=== PATIENT | female | born 1955 ===

== ENCOUNTER 2017-08-19 07:25 | Emergency (ER) | payer OTHER ==
[2017-08-19 07:36] VITALS: BMI 27.7
[2017-08-19] MEDS ORDERED: Sodium Chloride 0.9% 1,000 ML IV STA (07:50)
[2017-08-19 08:28] LABS: BASO # 0.1 K/uL (0.0-0.2); BASO % 0.7 % (0.0-2.0); EOS # 0.5 K/uL (0.0-0.7); EOS % 4.9 % (0.0-4.0); HEMOGLOBIN 13.3 g/dL (12.0-16.0); LYMPH # 1.1 K/uL (1.0-4.3); LYMPH % 11.9 % (20.0-40.0); MEAN CORPUSCULAR HEMOGLOBIN 27.9 pg (27.0-31.0); MEAN CORPUSCULAR HGB CONC 32.8 g/dL (33.0-37.0); MONO # 0.6 K/uL (0.0-0.8); MONO % 6.7 % (0.0-10.0); NEUT % 75.8 % (50.0-75.0); NRBC % 0.1 % (0.0-0.0); RBC 4.78 Mil/uL (3.80-5.20); RED CELL DISTRIBUTION WIDTH 13.4 % (11.5-14.5); WHITE BLOOD COUNT 9.3 K/uL (4.8-10.8)
--- NOTE | 2017-08-19 08:35 | ED PDOC ---
HPI: Abdomen Time Seen by Provider: 08/19/17 07:44 Chief Complaint (Nursing): Abdominal Pain Chief Complaint (Provider): Abdominal Pain History Per: Patient History/Exam Limitations: no limitations Onset/Duration Of Symptoms: Days (x3 ) Outside of [place] travel?: No Current Symptoms Are (Timing): Still Present Location Of Pain/Discomfort: RUQ, RLQ Quality Of Discomfort: Sharp Associated Symptoms: Fever (subjective), Nausea, Vomiting, Loss Of Appetite Exacerbating Factors: None Alleviating Factors: None Additional Complaint(s): Eve Kay, a 61 year old female, with a past medical history of arthritis presents to to the ED complaining of right sided abdominal pain, nausea, vomiting and subjective fever x3 days. The patient reports that the pain radiates to her back and is localized to her right upper and lower quadrants. Denies urinary complaints. PMD: Michele Overton Abnormal Vaginal Bleeding: No Past Medical History Reviewed: Historical Data, Nursing Documentation, Vital Signs Vital Signs: Last Vital Signs Temp 99.8 F H 08/19/17 13:32 Pulse 78 08/19/17 13:32 Resp 17 08/19/17 13:32 BP 110/67 08/19/17 13:32 Pulse Ox 98 08/19/17 13:32 - Medical History PMH: Arthritis - Surgical History Surgical History: No Surg Hx - Family History Family History: States: Unknown Family Hx - Immunization History Hx Tetanus Toxoid Vaccination: No Hx Influenza Vaccination: No Hx Pneumococcal Vaccination: No - Home Medications Home Medications: Ambulatory Orders Medication Instructions Recorded Ciprofloxacin [Cipro] 500 mg PO BID #14 tab 08/19/17 Ondansetron [Zofran] 4 mg PO Q6H PRN #10 tab 08/19/17 metroNIDAZOLE [Flagyl] 500 mg PO TID #21 tab 08/19/17 traMADol [Ultram] 50 mg PO TID PRN #12 tab 08/19/17 - Allergies Allergies/Adverse Reactions: Allergies Allergy/AdvReac Type Severity Reaction Status Date / Time No Known Allergies Allergy Unverified 03/17/13 12:06 Review of Systems ROS Statement: Except As Marked, All Systems Reviewed And Found Negative Constitutional: Positive for: Fever (subjective) Gastrointestinal: Positive for: Nausea, Vomiting, Abdominal Pain (RUQ and RLQ), Diarrhea Physical Exam - Reviewed Nursing Documentation Reviewed: Yes Vital Signs Reviewed: Yes - Physical Exam Appears: Positive for: Non-toxic. Negative for: No Acute Distress (Mild painful distress) Head Exam: Positive for: ATRAUMATIC, NORMAL INSPECTION, NORMOCEPHALIC Skin: Positive for: Normal Color, Warm, Dry. Negative for: Rash Eye Exam: Positive for: Normal appearance, EOMI, PERRL. Negative for: Nystagmus ENT: Positive for: Normal ENT Inspection Neck: Positive for: Normal Cardiovascular/Chest: Positive for: Regular Rate, Rhythm, Chest Non Tender. Negative for: Tachycardia Respiratory: Positive for: Normal Breath Sounds. Negative for: Wheezing, Respiratory Distress Gastrointestinal/Abdominal: Positive for: Normal Exam, Bowel Sounds, Tenderness (RUQ and RLQ tenderness). Negative for: Soft, Mass, Guarding, Rebound Back: Positive for: Normal Inspection. Negative for: L CVA Tenderness, R CVA Tenderness Extremity: Positive for: Normal ROM. Negative for: Tenderness, Deformity, Swelling Lymphatic: Positive for: Normal Exam Neurologic/Psych: Positive for: Alert, Oriented, Gait - Laboratory Results Result Diagrams: 08/19/17 08:21 08/19/17 08:21 - ECG O2 Sat by Pulse Oximetry: 99 (RA) Pulse Ox Interpretation: Normal Medical Decision Making Medical Decision Makin Iniitial Impression 61 y/o female presenting with abdominal pain, nausea, vomiting and diarrhea Work up for abdominal pain r/o appendicitis and cholecystitis Initial Plan: * CT ABD&PELV IV Contrast * CMP * Lipase * CBC * NS 1000 ml IV 1000mls/hr * Pepcid 20mg IV * Toradol 30mg IV * Zofran 4 mg IV * Urinalysis * Reevaluation labs reviewed CT report reviewed, shows R sided colitis, appendix was normal per radiologist Antibiotics initiated and 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 Scribe Attestation Documented by Ilene Leiva acting as a scribe for Orlando Villatoro DO. Provider Attestation All medical record entries made by the Scribe were at my direction and personally dictated by me. I have reviewed the chart and agree that the record accurately reflects my personal performance of the history, physical exam, medical decision making, and the department course for this patient. I have also personally directed, reviewed, and agree with the discharge instructions and disposition. Disposition - Clinical Impression Clinical Impression: Colitis - Patient ED Disposition Is Patient to be Admitted: No Counseled Patient/Family Regarding: Studies Performed, Diagnosis, Need For Followup, Rx Given - Disposition Referrals: Michele Mtz MD [Primary Care Provider] - Masood Dietz MD [Staff Provider] - Disposition: Routine/Home Disposition Time: 12:55 Condition: STABLE Additional Instructions: Followup with PMD and GI doctor. Return to ER for any worse or new symptoms/ Prescriptions: Ciprofloxacin [Cipro] 500 mg PO BID #14 tab metroNIDAZOLE [Flagyl] 500 mg PO TID #21 tab Ondansetron [Zofran] 4 mg PO Q6H PRN #10 tab PRN Reason: Nausea/Vomiting traMADol [Ultram] 50 mg PO TID PRN #12 tab PRN Reason: Pain, Moderate (4-7) Instructions: Abdominal Pain (ED), Colitis (ED) Forms: [employer] (Lao) Print Language: PERSIAN
[2017-08-19 08:38] LABS: SQUAMOUS EPITHIAL < 1 /hpf (0-5); URINE BILIRUBIN NEGATIVE (NEGATIVE); URINE BLOOD MODERATE (NEGATIVE); URINE CLARITY CLEAR (Clear); URINE COLOR STRAW (YELLOW); URINE GLUCOSE (UA) NEG (Normal); URINE LEUKOCYTE ESTERASE TRACE Leu/uL (Negative); URINE NITRATE NEGATIVE (NEGATIVE); URINE PROTEIN NEGATIVE (NEGATIVE); URINE UROBILINOGEN 0.2-1.0 mg/dL (0.2-1.0)
[2017-08-19 08:39] LABS: ALB/GLOB RATIO 1.1 (1.0-2.1); ALBUMIN 4.1 g/dL (3.5-5.0); ALT/SGPT 40 U/L (9-52); AST/SGOT 39 U/L (14-36); BLOOD UREA NITROGEN 12 mg/dl (7-17); CALCIUM 8.7 mg/dL (8.4-10.2); GFR AFRICAN-AMERICAN > 60; GFR NON-AFRICAN AMERICAN > 60; LIPASE 73 U/L (23-300)
[2017-08-19] MEDS ORDERED: Iohexol 300 100 ML IJ ONE (09:17)
--- NOTE | 2017-08-19 10:21 | CT ---
PROCEDURE: CT Abdomen and Pelvis with contrast HISTORY: RLQ and RUQ pain x3 days COMPARISON: None. TECHNIQUE: Contrast dose: Omnipaque 300, 95 cc Radiation dose: Total exam DLP = 694.35 mGy-cm. This CT exam was performed using one or more of the following dose reduction techniques: Automated exposure control, adjustment of the mA and/or kV according to patient size, and/or use of iterative reconstruction technique. FINDINGS: LOWER THORAX: No pleural or pericardial effusion. A left lower lobe subpleural granuloma is identified heavily calcified. LIVER: There is a tiny lucency at the dome of liver too small to characterize. The remainder liver is unremarkable GALLBLADDER AND BILE DUCTS: Unremarkable. PANCREAS: Unremarkable. No gross lesion or ductal dilatation. SPLEEN: Unremarkable. ADRENALS: Unremarkable. No mass. KIDNEYS AND URETERS: Unremarkable. No hydronephrosis. No solid mass. VASCULATURE: Unremarkable. No aortic aneurysm. BOWEL: Majority large bowel is collapsed with questionable mural thickening which may indicate an element of mild segmental colitis affecting the ascending through distal transverse segments. Mild prominence of the submucous fat within remaining large-bowel in even the ileum may indicate underlying irritable bowel disease or other chronic inflammatory process. Further clinical correlation is advised. APPENDIX: Normal appendix. PERITONEUM: Unremarkable. No free fluid. No free air. LYMPH NODES: Unremarkable. No enlarged lymph nodes. BLADDER: Unremarkable. REPRODUCTIVE: Unremarkable. BONES: No acute fracture. OTHER FINDINGS: None. IMPRESSION: 1. Possible segmental colitis affecting the cecum through distal transverse colon segments without obvious abscess ascites or free intraperitoneal gas. Underlying inflammatory bowel disease may affect distal small bowel through the colon nevertheless, as discussed above. Other chronic inflammatory bowel processes are not excluded. 2. Tiny lucency at the dome of the liver too small to characterize.
[2017-08-19 13:38] VITALS: BP 110/67; PULSE 78; RESP 17; TEMP 99.8
[2017-08-21 08:14] VITALS: O2SAT 99
== END 2017-08-19 13:47 | disposition home or self-care (01) ==
LOC: SUPCPDRO 07:25 → H.ER 07:25
DX: K52.9 Noninfective gastroenteritis and colitis, unspecified (principal)
CPT/HCPCS: 74177; 80053; 81003; 83690; 85025; 96374; 96375; 99283; J1885; J2405; J7040; Q9967

== ENCOUNTER 2018-03-12 17:49 | Inpatient (IN) | payer OTHER ==
[2018-03-12 17:49] VITALS: BMI 27.7
[2018-03-12] MEDS ORDERED: Sodium Chloride 0.9% 1,000 ML IV STA (19:05)
[2018-03-12] MEDS ORDERED: Iohexol 240 (50 ml) PO ONE (19:08)
--- NOTE | 2018-03-12 19:08 | ED PDOC ---
HPI: Abdomen Time Seen by Provider: 03/12/18 18:57 Chief Complaint (Nursing): Abdominal Pain Chief Complaint (Provider): RLQ pain x 8 days History Per: Patient History/Exam Limitations: no limitations Onset/Duration Of Symptoms: Days Outside of [place] travel?: No Current Symptoms Are (Timing): Still Present Additional Complaint(s): 62 yo female with no medical problems presents with RLQ pain and diarrhea x 8 days. Pt states diarrhea is watery. Pt denies fever/chills. Pt states she is extremely nauseous and has been vomiting. Pt denies similar in the past. Pt was seen in ER for abdominal pain and colitis in the past. Past Medical History Reviewed: Historical Data, Nursing Documentation, Vital Signs Vital Signs: Last Vital Signs Temp 98.2 F 03/12/18 18:31 Pulse 77 03/12/18 18:31 Resp 16 03/12/18 18:31 BP 114/75 03/12/18 18:31 Pulse Ox 98 03/12/18 19:08 - Medical History PMH: Arthritis - Surgical History Surgical History: No Surg Hx - Family History Family History: States: Unknown Family Hx - Living Arrangements Living Arrangements: With Family - Social History Current smoker - smoking cessation education provided: No Alcohol: None Drugs: Denies - Immunization History Hx Tetanus Toxoid Vaccination: No Hx Influenza Vaccination: No Hx Pneumococcal Vaccination: No - Home Medications Home Medications: Ambulatory Orders Medication Instructions Recorded Ciprofloxacin [Cipro] 500 mg PO BID #14 tab 08/19/17 Ondansetron [Zofran] 4 mg PO Q6H PRN #10 tab 08/19/17 metroNIDAZOLE [Flagyl] 500 mg PO TID #21 tab 08/19/17 traMADol [Ultram] 50 mg PO TID PRN #12 tab 08/19/17 - Allergies Allergies/Adverse Reactions: Allergies Allergy/AdvReac Type Severity Reaction Status Date / Time No Known Allergies Allergy Unverified 03/17/13 12:06 Review of Systems ROS Statement: Except As Marked, All Systems Reviewed And Found Negative Constitutional: Negative for: Fever, Chills Gastrointestinal: Positive for: Nausea, Vomiting, Abdominal Pain, Diarrhea Physical Exam - Reviewed Nursing Documentation Reviewed: Yes Vital Signs Reviewed: Yes - Physical Exam Appears: Positive for: Well, Non-toxic, No Acute Distress Head Exam: Positive for: ATRAUMATIC, NORMAL INSPECTION, NORMOCEPHALIC Skin: Positive for: Normal Color, Warm, DRY Eye Exam: Positive for: Normal appearance ENT: Positive for: Normal ENT Inspection Neck: Positive for: Normal, Painless ROM Cardiovascular/Chest: Positive for: Regular Rate, Rhythm Respiratory: Positive for: Normal Breath Sounds. Negative for: Accessory Muscle Use, Respiratory Distress Gastrointestinal/Abdominal: Positive for: Tenderness (RLQ ), Guarding. Negative for: Normal Exam Back: Positive for: Normal Inspection Extremity: Positive for: Normal ROM Neurologic/Psych: Positive for: Alert, Oriented - ECG O2 Sat by Pulse Oximetry: 98 Medical Decision Making Medical Decision Making: Endorsed pending CT of the abdomen and pelvis Disposition - Clinical Impression Clinical Impression: Abdominal pain - Patient ED Disposition Is Patient to be Admitted: Transfer of Care - Disposition Disposition: Transfer of Care Disposition Time: 20:00 Condition: STABLE Forms: [email or web address] (Lithuanian)
[2018-03-12] MEDS ORDERED: Iohexol 240 (50 ml) ONE (19:22)
[2018-03-12 20:07] LABS: BASO % 0.1 % (0.0-2.0); EOS # 0.3 K/uL (0.0-0.7); EOS % 1.8 % (0.0-4.0); LYMPH # 0.6 K/uL (1.0-4.3); LYMPH % 3.1 % (20.0-40.0); MEAN CELL VOLUME 85.8 fl (81.0-99.0); MEAN CORPUSCULAR HEMOGLOBIN 28.6 pg (27.0-31.0); MEAN CORPUSCULAR HGB CONC 33.4 g/dL (33.0-37.0); MEAN PLATELET VOLUME 10.4 fl (7.2-11.7); MONO # 1.1 K/uL (0.0-0.8); MONO % 6.3 % (0.0-10.0); NEUT % 88.7 % (50.0-75.0); PLATELET COUNT 253 K/uL (130-400); RED CELL DISTRIBUTION WIDTH 13.4 % (11.5-14.5)
[2018-03-12 20:22] LABS: ALB/GLOB RATIO 1.1 (1.0-2.1); ALBUMIN 4.1 g/dL (3.5-5.0); ALT/SGPT 21 U/L (9-52); AST/SGOT 28 U/L (14-36); BLOOD UREA NITROGEN 17 mg/dl (7-17); GFR AFRICAN-AMERICAN > 60; GFR NON-AFRICAN AMERICAN > 60
--- NOTE | 2018-03-12 20:22 | ED PDOC ---
- Laboratory Results Result Diagrams: 03/12/18 19:30 03/12/18 19:30 - ECG O2 Sat by Pulse Oximetry: 98 - Progress ED Course And Treament: 1999 Signed out to me pending CT. 2019 On my initial evaluation, pt. reports pain has improved. Abd still with RLQ tenderness. No guarding or rebound. WBC: 18. VBG ordered. Pending CT. 2217 CT: 1. There is diffuse colonic wall thickening, which could be an artifact due to incomplete distention or true colitis (more likely). 2. There is mild small bowel wall prominence, likely an artifact due to incomplete distention. True small bowel wall edema/inflammation cannot be excluded completely. Cipro IV, flagyl IV ordered. Pt. informed of results and agrees with plan to admit. Case d/w Dr. Richards, hospitalist, arrangements made for admission. Disposition - Clinical Impression Clinical Impression: Colitis - POA Present On Arrival: None - Disposition Disposition: Admitted as In-Patient Disposition Time: 22:18 Condition: STABLE Forms: [employer] Connect (Mohawk)
[2018-03-12 21:12] LABS: SQUAMOUS EPITHIAL 1 /hpf (0-5); URINE BILIRUBIN NEGATIVE (NEGATIVE); URINE BLOOD SMALL (NEGATIVE); URINE CLARITY SLIGHTY-CLOUDY (Clear); URINE COLOR YELLOW (YELLOW); URINE GLUCOSE (UA) NEG (Normal); URINE HYALINE CAST 0-2 /hpf (0-2); URINE LEUKOCYTE ESTERASE MOD Leu/uL (Negative); URINE PROTEIN NEGATIVE (NEGATIVE); URINE UROBILINOGEN 0.2-1.0 mg/dL (0.2-1.0)
[2018-03-12 21:15] LABS: VENOUS BLOOD GAS PCO2 48 mmHg (40-60); VENOUS BLOOD GAS PO2 24 mm/Hg (30-55); VENOUS BLOOD PH 7.36 (7.32-7.43)
[2018-03-12] MEDS ORDERED: Iodixanol 320 MG/ML 100 ML BOTTLE IV ONE (21:17)
[2018-03-12 21:49] LABS: EOSINOPHIL 1 % (0-7); MONOCYTE 3 % (0-10); NEUTROPHIL 96 % (42-75); PLATELET ESTIMATE NORMAL (NORMAL); TOTAL CELLS COUNTED 100
[2018-03-12] MEDS ORDERED: metroNIDAZOLE 500mg/100ml NS 100 ML IVPB STA (22:19)
[2018-03-12] MEDS ORDERED: Ciprofloxacin 400mg/200ml D5W 400 MG/200 ML BAG IVPB STA (22:19)
[2018-03-12] MEDS ORDERED: metroNIDAZOLE 500mg/100ml NS 100 ML IVPB ONE (22:34)
[2018-03-12] MEDS ORDERED: Ciprofloxacin 400mg/200ml D5W 400 MG/200 ML BAG IVPB ONE (22:34)
--- NOTE | 2018-03-12 22:46 | CP.PCM.HP ---
History of Present Illness - History of Present Illness History of Present Illness: PMD: Michele Mtz MD Chief Complaint: Abdominal pain/Diarrhea The patient was seen and examined in the ED HPI: This is a 62 years old Female with no significant past medical hx , comes with 8 days of worsening Pain to the right lower quadrant , radiating to the RUQ, Epigastrium and to the Right back. The pain is continuous, increasing with food ingestion and not relieved with [place] seltzer. It is associated with non bloody diarrhea, nausea and vomiting. No fever, chills. No family member nor friends with similar symptom. PMH: Arthritis PSH: Denies SH: No illegal drug use; no Alcohol; No Cigarette smoking; Live with family; Unemployed FH: States: Unknown Family Hx Allergies: NKDA Medications: Reviewed - Present on Admission - Present on Admission Any Indicators Present on Admission: No History of DVT/PE: No History of Uncontrolled Diabetes: No Urinary Catheter: No Decubitus Ulcer Present: No Review of Systems - Constitutional Constitutional: absent: Chills, Fever, Headache, Weakness - EENT Eyes: absent: Blurred Vision, Diplopia, Floaters, Loss of Peripheral Vision, Requires Corrective Lenses Ears: absent: Decreased Hearing, Ear Discharge, Tinnitus, Abnormal Hearing Nose/Mouth/Throat: absent: Epistaxis, Nasal Congestion, Nasal Discharge, Nasal Trauma, Nose Pain - Cardiovascular Cardiovascular: absent: Chest Pain, Dyspnea, Edema, Leg Ulcers, Palpitations - Respiratory Respiratory: absent: Cough, Dyspnea, Dyspnea on Exertion, Wheezing, Stridor - Gastrointestinal Gastrointestinal: Diarrhea, Nausea, Vomiting. absent: Constipation, Hematochezia, Melena - Genitourinary Genitourinary: absent: Dysuria, Flank Pain, Hematuria, Urinary Frequency - Musculoskeletal Musculoskeletal: absent: Arthralgias, Myalgias, Numbness - Integumentary Integumentary: absent: Pruritus, Rash, Skin Ulcer, Sores, Striae, Swelling - Neurological Neurological: absent: Burning Sensations, Confusion, Focal Weakness, Loss of Vision - Psychiatric Psychiatric: absent: Anxiety, Confusion, Depression, Panic Attacks - Endocrine Endocrine: absent: Palpitations, Polydipsia, Polyphagia, Polyuria - Hematologic/Lymphatic Hematologic: absent: Easy Bleeding, Easy Bruising Past Patient History - Infectious Disease Hx of Infectious Diseases: None - Past Medical History & Family History Past Medical History?: Yes - Past Social History Smoking Status: Never Smoked Chewing Tobacco Use: No Cigar Use: No Alcohol: Occasional Drugs: Denies Home Situation {Lives}: With Family - CARDIAC Hx Cardiac Disorders: No - PULMONARY Hx Respiratory Disorders: No - NEUROLOGICAL Hx Neurological Disorder: No - HEENT Hx HEENT Problems: No - RENAL Hx Chronic Kidney Disease: No - ENDOCRINE/METABOLIC Hx Endocrine Disorders: No - HEMATOLOGICAL/ONCOLOGICAL Hx Blood Disorders: No - INTEGUMENTARY Hx Dermatological Problems: No - MUSCULOSKELETAL/RHEUMATOLOGICAL Hx Musculoskeletal Disorders: No Hx Arthritis: Yes - GASTROINTESTINAL Hx Gastrointestinal Disorders: No - GENITOURINARY/GYNECOLOGICAL Hx Genitourinary Disorders: No - PSYCHIATRIC Hx Psychophysiologic Disorder: No Hx Substance Use: No - SURGICAL HISTORY Hx Surgeries: No - ANESTHESIA Hx Anesthesia: No Meds Allergies/Adverse Reactions: Allergies Allergy/AdvReac Type Severity Reaction Status Date / Time No Known Allergies Allergy Unverified 03/17/13 12:06 Physical Exam - Constitutional Appears: No Acute Distress - Head Exam Head Exam: ATRAUMATIC, NORMAL INSPECTION, NORMOCEPHALIC - Eye Exam Eye Exam: EOMI, Normal appearance, Periorbital swelling - ENT Exam ENT Exam: Mucous Membranes Moist, Normal Exam, Normal External Ear Exam - Neck Exam Neck exam: Positive for: Full Rom, Thyromegaly - Respiratory Exam Respiratory Exam: absent: Clear to Auscultation Bilateral, Rales, Rhonchi, Wheezes - Cardiovascular Exam Cardiovascular Exam: absent: REGULAR RHYTHM, JVD, RRR, +S1, +S2 - GI/Abdominal Exam GI & Abdominal Exam: Normal Bowel Sounds, Soft. absent: Tenderness - Rectal Exam Rectal Exam: Deferred - Extremities Exam Extremities exam: Positive for: full ROM, normal inspection. Negative for: calf tenderness, pedal edema - Back Exam Back exam: NORMAL INSPECTION. absent: CVA tenderness (L), CVA tenderness (R) - Neurological Exam Neurological exam: Alert, CN II-XII Intact, Oriented x3, Reflexes Normal - Psychiatric Exam Psychiatric exam: Normal Affect, Normal Mood - Skin Skin Exam: Dry, Intact, Normal Color, Warm Results - Vital Signs Recent Vital Signs: Last Vital Signs Temp 98.2 F 03/12/18 18:31 Pulse 60 03/12/18 22:43 Resp 18 03/12/18 22:43 BP 106/55 L 03/12/18 22:43 Pulse Ox 97 07/14/18 22:43 - Labs Result Diagrams: 03/12/18 19:30 03/12/18 19:30 Labs: Laboratory Results - last 24 hr 03/12/18 03/12/18 03/12/18 19:30 19:30 20:25 WBC 18.0 H D RBC 4.90 Hgb 14.0 Hct 42.0 MCV 85.8 MCH 28.6 MCHC 33.4 RDW 13.4 Plt Count 253 MPV 10.4 Neut % (Auto) 88.7 H Lymph % (Auto) 3.1 L [place] % (Auto) 6.3 Eos % (Auto) 1.8 Baso % (Auto) 0.1 Neut # (Auto) 16.0 H Lymph # (Auto) 0.6 L [place] # (Auto) 1.1 H Eos # (Auto) 0.3 Baso # (Auto) 0.0 Neutrophils % (Manual) 96 H Lymphocytes % (Manual) TEST NOT PERFORMED Monocytes % (Manual) 3 Eosinophils % (Manual) 1 Platelet Estimate Normal RBC Morphology Normal pO2 VBG pH VBG pCO2 VBG HCO3 VBG Total CO2 VBG O2 Sat (Calc) VBG Base Excess VBG Potassium Glucose Lactate FiO2 Sodium 146 Potassium 4.0 Chloride 106 Carbon Dioxide 26 Anion Gap 18 BUN 17 Creatinine 0.8 Est GFR ( Amer) > 60 Est GFR (Non-Af Amer) > 60 Random Glucose 114 H Calcium 9.0 Total Bilirubin 1.9 H AST 28 ALT 21 Alkaline Phosphatase 128 H D Total Protein 7.9 Albumin 4.1 Globulin 3.8 Albumin/Globulin Ratio 1.1 Venous Blood Potassium Urine Color Yellow Urine Clarity Slighty-cloudy Urine pH 6.0 Ur Specific [place] 1.018 Urine Protein Negative Urine Glucose (UA) Neg Urine Ketones Negative Urine Blood Small Urine Nitrate Negative Urine Bilirubin Negative Urine Urobilinogen 0.2-1.0 Ur Leukocyte Esterase Mod Urine RBC (Auto) 7 H Urine Microscopic WBC 21 H Ur Squamous Epith Cells 1 Hyaline Casts 0-2 03/12/18 21:06 WBC RBC Hgb Hct MCV MCH MCHC RDW Plt Count MPV Neut % (Auto) Lymph % (Auto) [place] % (Auto) Eos % (Auto) Baso % (Auto) Neut # (Auto) Lymph # (Auto) [place] # (Auto) Eos # (Auto) Baso # (Auto) Neutrophils % (Manual) Lymphocytes % (Manual) Monocytes % (Manual) Eosinophils % (Manual) Platelet Estimate RBC Morphology pO2 24 L VBG pH 7.36 VBG pCO2 48 VBG HCO3 24.1 VBG Total CO2 28.6 H VBG O2 Sat (Calc) 48.5 VBG Base Excess 1.0 VBG Potassium 3.7 Glucose 117 H Lactate 0.8 FiO2 21.0 Sodium 140.0 Potassium Chloride 108.0 H Carbon Dioxide Anion Gap BUN Creatinine Est GFR ( Amer) Est GFR (Non-Af Amer) Random Glucose Calcium Total Bilirubin AST ALT Alkaline Phosphatase Total Protein Albumin Globulin Albumin/Globulin Ratio Venous Blood Potassium 3.7 Urine Color Urine Clarity Urine pH Ur Specific [place] Urine Protein Urine Glucose (UA) Urine Ketones Urine Blood Urine Nitrate Urine Bilirubin Urine Urobilinogen Ur Leukocyte Esterase Urine RBC (Auto) Urine Microscopic WBC Ur Squamous Epith Cells Hyaline Casts - Imaging and Cardiology CT scan - abdomen Status: Report reviewed by me Additional comment: EXAM: CT Abdomen and Pelvis With Intravenous Contrast EXAM DATE/TIME: 03/12/2018 7:08 PM FINDINGS: Lower thorax: There are slight groundglass opacities in the dependent portions of the lower lungs, suggesting atelectasis. ABDOMEN: Liver: There is a tiny hypodensity in the dome of the liver, likely a cyst. Gallbladder and bile ducts: Normal. No calcified stones. No ductal dilation. Pancreas: Normal. No ductal dilation. Spleen: Normal. No splenomegaly. Adrenals: Normal. No mass. Kidneys and ureters: Normal. No hydronephrosis. Stomach and bowel: There is diffuse colonic wall thickening, which could be an artifact due to incomplete distention or true colitis (more likely). There is mild small bowel wall prominence, likely an artifact due to incomplete distention. There is no bowel dilatation to suggest obstruction. Appendix: The CT appearance of the appendix is unremarkable. There are no signs of daniel appendicitis. PELVIS: Bladder: Unremarkable as visualized. Reproductive: Unremarkable as visualized. ABDOMEN and PELVIS: Intraperitoneal space: No free air. No significant fluid collection. Soft tissues: There is a small periumbilical hernia containing only fat. Vasculature: There is no aortic aneurysm or dissection. Lymph nodes: No enlarged lymph nodes. IMPRESSION: 1. There is diffuse colonic wall thickening, which could be an artifact due to incomplete distention or true colitis (more likely). 2. There is mild small bowel wall prominence, likely an artifact due to incomplete distention. True small bowel wall edema/inflammation cannot be excluded completely. Assessment & Plan - Assessment and Plan (Free Text) Assessment: #. Acute Colitis #. Acute Enteritis #. Leukocytosis Plan: 62 years old Female with no significant past medical hx, comes with 8 days of worsening Pain to the right lower quadrant , radiating to the RUQ, Epigastrium and to the Right back. It is associated with non bloody diarrhea, nausea and vomiting. No fever nor chills. #. Abdominal pain caused by the Acute Colitis and enteritis of unknown etiology - Consult Dr Resendez GI - Stool culture - Stool For C diff Toxins - Flagyl - Cipro - Pain management with Toradol - IV fluids #. Leukocytosis - Follow CBC #. DVT prophylaxis with Lovenox #. Code Status: Full - Date & Time Date: 03/12/18 Time: 22:46
[2018-03-13] MEDS: Sodium Chloride 0.9% 1,000 ML IV SCH ×2 (01:15→08:25)
[2018-03-13 07:19] LABS: BASO % 0.3 % (0.0-2.0); EOS # 0.7 K/uL (0.0-0.7); EOS % 9.1 % (0.0-4.0); HEMOGLOBIN 12.1 g/dL (12.0-16.0); LYMPH # 1.6 K/uL (1.0-4.3); MEAN CELL VOLUME 86.4 fl (81.0-99.0); MEAN CORPUSCULAR HEMOGLOBIN 28.8 pg (27.0-31.0); MEAN CORPUSCULAR HGB CONC 33.4 g/dL (33.0-37.0); MEAN PLATELET VOLUME 10.1 fl (7.2-11.7); MONO # 0.5 K/uL (0.0-0.8); NEUT # 4.7 K/uL (1.8-7.0); NEUT % 62.6 % (50.0-75.0); NRBC % 0.1 % (0.0-0.0); RBC 4.2 Mil/uL (3.80-5.20); RED CELL DISTRIBUTION WIDTH 13.5 % (11.5-14.5); WHITE BLOOD COUNT 7.6 K/uL (4.8-10.8)
[2018-03-13 07:27] LABS: BLOOD UREA NITROGEN 16 mg/dl (7-17); CALCIUM 8.2 mg/dL (8.4-10.2); GFR AFRICAN-AMERICAN > 60; GFR NON-AFRICAN AMERICAN > 60
[2018-03-13 08:08] VITALS: BP 120/70; PULSE 54; RESP 18; TEMP 97.8; O2SAT 97
[2018-03-13] MEDS ORDERED: Ciprofloxacin 400mg/200ml D5W 400 MG/200 ML BAG IVPB SCH (09:00)
[2018-03-13] MEDS ORDERED: Enoxaparin 40 mg Syringe SC SCH (09:00)
[2018-03-13] MEDS ORDERED: metroNIDAZOLE 500mg/100ml NS 100 ML IVPB SCH (09:00)
--- NOTE | 2018-03-13 09:53 | CP.PCM.CON ---
<Angie Stephenson - Last Filed: 03/13/18 09:43> History of Present Illness - History of Present Illness History of Present Illness: Gastroenterology Fellow/PGY6 Consult Note 62 year old female with PMH of Left knee arthritis and kidney stones presenting with abdominal pain and diarrhea. Patient describes progressive diffuse abdominal pain with increased severity on right jeri-abdomen with radiation to back, pain scale 10/10. Associated nausea and watery diarrhea daily 3-4 episodes for one week. Associated three pound unintentional weight loss due to loss of appetite and GI fluid loss. Notes eating ham/cheese tortilla and sandwich two diarrhea prior to worsened abdominal pain and diarrhea onset. No recent travel, antibiotics, sick contacts, vomiting melena, fever, chills, sweats, skin rash, mouth ulcer, eye pain/redness, or chronic unintentional weight loss. She admits to similar episodes of abdominal pain for the last five years and admits this is the first occurrence of diarrhea. Notes chronic, constant right-sided abdominal pain every 2-3 months that can last for at least one month. Admits to constant right knee pain worsened by prolonged sitting. Denies association of severity of knee and abdominal pain. Admits to use of Diclofenac once a month and Advil once every two months for the last three years for pain relief. Has presented to the ER in 2012 and most recent 07/2017 for similar abdominal pain with 7-10 day course of Cipro/flagyl prescribed each time and noncompliance to clinic follow up. Prior to diarrhea onset, admits to normal daily bowel movement without hematochezia/melena. Notes spontaneous passage of kidney stone seven years ago. Admits to semi-formed stool this morning and minimal abdominal pain. Tolerated clear liquid diet. No prior EGD or colonoscopy. Family History- denies IBD, stomach cancer, colon cancer Social History- denies tobacco, alcohol, illicit drug use Surgical History- steroid injection to hands for arthritis per patient Review of Systems - Review of Systems Review of Systems: 12-point review of systems negative except for as above Past Patient History - Infectious Disease Hx of Infectious Diseases: None - Past Medical History & Family History Past Medical History?: Yes - Past Social History Smoking Status: Never Smoked - CARDIAC Hx Cardiac Disorders: No - PULMONARY Hx Respiratory Disorders: No - NEUROLOGICAL Hx Neurological Disorder: No - HEENT Hx HEENT Problems: No - RENAL Hx Chronic Kidney Disease: No - ENDOCRINE/METABOLIC Hx Endocrine Disorders: No - HEMATOLOGICAL/ONCOLOGICAL Hx Blood Disorders: No - INTEGUMENTARY Hx Dermatological Problems: No - MUSCULOSKELETAL/RHEUMATOLOGICAL Hx Musculoskeletal Disorders: Yes Hx Arthritis: Yes Hx Falls: No - GASTROINTESTINAL Hx Gastrointestinal Disorders: No - GENITOURINARY/GYNECOLOGICAL Hx Genitourinary Disorders: No - PSYCHIATRIC Hx Psychophysiologic Disorder: No Hx Substance Use: No - SURGICAL HISTORY Hx Surgeries: No - ANESTHESIA Hx Anesthesia: No Meds Allergies/Adverse Reactions: Allergies Allergy/AdvReac Type Severity Reaction Status Date / Time No Known Allergies Allergy Unverified 03/17/13 12:06 - Medications Medications: Current Medications Acetaminophen (Tylenol 325mg Tab) 650 mg PO Q6 PRN PRN Reason: Pain, moderate (4-7) Enoxaparin Sodium (Lovenox) 40 mg SC DAILY DEVANTE PRN Reason: Protocol Last Admin: 03/13/18 08:27 Dose: 40 mg Ciprofloxacin (Cipro 400mg/200ml Dsw) 400 mg in 200 mls @ 200 mls/hr IVPB Q12 DEVANTE PRN Reason: Protocol Last Admin: 03/13/18 08:24 Dose: 200 mls/hr Metronidazole (Flagyl 500mg/100ml Ns) 100 mls @ 100 mls/hr IVPB Q8 DEVANTE PRN Reason: Protocol Last Admin: 03/13/18 08:25 Dose: 100 mls/hr Sodium Chloride (Sodium Chloride 0.9%) 1,000 mls @ 125 mls/hr IV .Q8H DEVANTE Stop: 03/13/18 23:23 Last Admin: 03/13/18 08:25 Dose: 125 mls/hr Ondansetron HCl (Zofran Inj) 4 mg IVP Q4 PRN PRN Reason: Nausea/Vomiting Physical Exam - Constitutional Appears: Non-toxic, No Acute Distress - Head Exam Head Exam: ATRAUMATIC, NORMOCEPHALIC - Eye Exam Eye Exam: EOMI, PERRL - ENT Exam ENT Exam: Mucous Membranes Moist, Normal Oropharynx - Neck Exam Neck exam: Positive for: Full Rom, Normal Inspection - Respiratory Exam Respiratory Exam: Clear to Auscultation Bilateral. absent: Rales, Rhonchi, Wheezes - Cardiovascular Exam Cardiovascular Exam: RRR, +S1, +S2. absent: Gallop, Rubs - GI/Abdominal Exam GI & Abdominal Exam: Normal Bowel Sounds, Soft, Tenderness. absent: Distended, Guarding, Organomegaly, Rebound, Rigid Additional comments: minimal discomfort to palpation of Right jeri-abdomen - Extremities Exam Extremities exam: Positive for: normal inspection. Negative for: pedal edema - Neurological Exam Neurological exam: Alert, Oriented x3 - Psychiatric Exam Psychiatric exam: Normal Affect, Normal Mood - Skin Skin Exam: Dry, Intact, Normal Color, Warm Results - Vital Signs Recent Vital Signs: Last Vital Signs Temp 97.8 F 03/13/18 08:08 Pulse 54 L 03/13/18 08:08 Resp 18 03/13/18 08:08 BP 120/70 03/13/18 08:08 Pulse Ox 97 03/13/18 08:08 - Labs Result Diagrams: 03/13/18 06:45 03/13/18 06:45 Labs: Laboratory Results - last 24 hr 03/12/18 03/12/18 03/12/18 19:30 19:30 20:25 WBC 18.0 H D RBC 4.90 Hgb 14.0 Hct 42.0 MCV 85.8 MCH 28.6 MCHC 33.4 RDW 13.4 Plt Count 253 MPV 10.4 Neut % (Auto) 88.7 H Lymph % (Auto) 3.1 L [place] % (Auto) 6.3 Eos % (Auto) 1.8 Baso % (Auto) 0.1 Neut # (Auto) 16.0 H Lymph # (Auto) 0.6 L [place] # (Auto) 1.1 H Eos # (Auto) 0.3 Baso # (Auto) 0.0 Neutrophils % (Manual) 96 H Lymphocytes % (Manual) TEST NOT PERFORMED Monocytes % (Manual) 3 Eosinophils % (Manual) 1 Platelet Estimate Normal RBC Morphology Normal pO2 VBG pH VBG pCO2 VBG HCO3 VBG Total CO2 VBG O2 Sat (Calc) VBG Base Excess VBG Potassium Glucose Lactate FiO2 Sodium 146 Potassium 4.0 Chloride 106 Carbon Dioxide 26 Anion Gap 18 BUN 17 Creatinine 0.8 Est GFR ( Amer) > 60 Est GFR (Non-Af Amer) > 60 Random Glucose 114 H Calcium 9.0 Phosphorus Magnesium Total Bilirubin 1.9 H AST 28 ALT 21 Alkaline Phosphatase 128 H D Total Protein 7.9 Albumin 4.1 Globulin 3.8 Albumin/Globulin Ratio 1.1 Venous Blood Potassium Urine Color Yellow Urine Clarity Slighty-cloudy Urine pH 6.0 Ur Specific [place] 1.018 Urine Protein Negative Urine Glucose (UA) Neg Urine Ketones Negative Urine Blood Small Urine Nitrate Negative Urine Bilirubin Negative Urine Urobilinogen 0.2-1.0 Ur Leukocyte Esterase Mod Urine RBC (Auto) 7 H Urine Microscopic WBC 21 H Ur Squamous Epith Cells 1 Hyaline Casts 0-2 03/12/18 03/13/18 03/13/18 21:06 06:45 06:45 WBC 7.6 D RBC 4.20 Hgb 12.1 Hct 36.3 MCV 86.4 MCH 28.8 MCHC 33.4 RDW 13.5 Plt Count 207 MPV 10.1 Neut % (Auto) 62.6 Lymph % (Auto) 21.0 [place] % (Auto) 7.0 Eos % (Auto) 9.1 H Baso % (Auto) 0.3 Neut # (Auto) 4.7 Lymph # (Auto) 1.6 [place] # (Auto) 0.5 Eos # (Auto) 0.7 Baso # (Auto) 0.0 Neutrophils % (Manual) Lymphocytes % (Manual) Monocytes % (Manual) Eosinophils % (Manual) Platelet Estimate RBC Morphology pO2 24 L VBG pH 7.36 VBG pCO2 48 VBG HCO3 24.1 VBG Total CO2 28.6 H VBG O2 Sat (Calc) 48.5 VBG Base Excess 1.0 VBG Potassium 3.7 Glucose 117 H Lactate 0.8 FiO2 21.0 Sodium 140.0 142 Potassium 3.8 Chloride 108.0 H 109 H Carbon Dioxide 24 Anion Gap 13 BUN 16 Creatinine 0.6 L Est GFR ( Amer) > 60 Est GFR (Non-Af Amer) > 60 Random Glucose 93 Calcium 8.2 L Phosphorus 4.1 Magnesium 2.2 Total Bilirubin AST ALT Alkaline Phosphatase Total Protein Albumin Globulin Albumin/Globulin Ratio Venous Blood Potassium 3.7 Urine Color Urine Clarity Urine pH Ur Specific [place] Urine Protein Urine Glucose (UA) Urine Ketones Urine Blood Urine Nitrate Urine Bilirubin Urine Urobilinogen Ur Leukocyte Esterase Urine RBC (Auto) Urine Microscopic WBC Ur Squamous Epith Cells Hyaline Casts Assessment & Plan - Assessment and Plan (Free Text) Assessment: 62 year old female with PMH of Left knee arthritis and kidney stones presenting with abdominal pain and diarrhea. Active treatment of acute gastroenteritis with likely underlying chronic inflammatory colonic process with CT A/P PO/IV concerning for enterocolitis with concern for progressive underlying pathology given prior CT A/P IV 07/2017 with ileitis and left-sided colitis and CT A/P PO/ IV 03/2013 with transverse colitis. No prior EGD or colonoscopy. Plan: -resolving acute gastroenteritis likely cause of exacerbation of chronic abdominal pain and new onset diarrhea -semi-formed stool this morning -pending stool infectious workup -leukocytosis resolved -afebrile, no signs of organ dysfunction -tolerating clear liquid diet, advance as tolerated to bland diet -complete cipro/flagyl 10-14 days -counselled to avoid NSAID use -counselled on outpatient following for EGD/colonoscopy to rule out IBD and/ other underlying pathology or chronic inflammatory changes on cross-sectional imaging from [id number] <David Bernabe - Last Filed: 03/13/18 10:12> Meds - Medications Medications: Current Medications Acetaminophen (Tylenol 325mg Tab) 650 mg PO Q6 PRN PRN Reason: Pain, moderate (4-7) Enoxaparin Sodium (Lovenox) 40 mg SC DAILY DEVANTE PRN Reason: Protocol Last Admin: 03/13/18 08:27 Dose: 40 mg Ciprofloxacin (Cipro 400mg/200ml Dsw) 400 mg in 200 mls @ 200 mls/hr IVPB Q12 DEVANTE PRN Reason: Protocol Last Admin: 03/13/18 08:24 Dose: 200 mls/hr Metronidazole (Flagyl 500mg/100ml Ns) 100 mls @ 100 mls/hr IVPB Q8 DEVANTE PRN Reason: Protocol Last Admin: 03/13/18 08:25 Dose: 100 mls/hr Sodium Chloride (Sodium Chloride 0.9%) 1,000 mls @ 125 mls/hr IV .Q8H DEVANTE Stop: 03/13/18 23:23 Last Admin: 03/13/18 08:25 Dose: 125 mls/hr Ondansetron HCl (Zofran Inj) 4 mg IVP Q4 PRN PRN Reason: Nausea/Vomiting Results - Vital Signs Recent Vital Signs: Last Vital Signs Temp 97.8 F 03/13/18 08:08 Pulse 54 L 03/13/18 08:08 Resp 18 03/13/18 08:08 BP 120/70 03/13/18 08:08 Pulse Ox 97 03/13/18 08:08 - Labs Result Diagrams: 03/13/18 06:45 03/13/18 06:45 Labs: Laboratory Results - last 24 hr 03/12/18 03/12/18 03/12/18 19:30 19:30 20:25 WBC 18.0 H D RBC 4.90 Hgb 14.0 Hct 42.0 MCV 85.8 MCH 28.6 MCHC 33.4 RDW 13.4 Plt Count 253 MPV 10.4 Neut % (Auto) 88.7 H Lymph % (Auto) 3.1 L [place] % (Auto) 6.3 Eos % (Auto) 1.8 Baso % (Auto) 0.1 Neut # (Auto) 16.0 H Lymph # (Auto) 0.6 L [place] # (Auto) 1.1 H Eos # (Auto) 0.3 Baso # (Auto) 0.0 Neutrophils % (Manual) 96 H Lymphocytes % (Manual) TEST NOT PERFORMED Monocytes % (Manual) 3 Eosinophils % (Manual) 1 Platelet Estimate Normal RBC Morphology Normal pO2 VBG pH VBG pCO2 VBG HCO3 VBG Total CO2 VBG O2 Sat (Calc) VBG Base Excess VBG Potassium Glucose Lactate FiO2 Sodium 146 Potassium 4.0 Chloride 106 Carbon Dioxide 26 Anion Gap 18 BUN 17 Creatinine 0.8 Est GFR ( Amer) > 60 Est GFR (Non-Af Amer) > 60 Random Glucose 114 H Calcium 9.0 Phosphorus Magnesium Total Bilirubin 1.9 H AST 28 ALT 21 Alkaline Phosphatase 128 H D Total Protein 7.9 Albumin 4.1 Globulin 3.8 Albumin/Globulin Ratio 1.1 Venous Blood Potassium Urine Color Yellow Urine Clarity Slighty-cloudy Urine pH 6.0 Ur Specific [place] 1.018 Urine Protein Negative Urine Glucose (UA) Neg Urine Ketones Negative Urine Blood Small Urine Nitrate Negative Urine Bilirubin Negative Urine Urobilinogen 0.2-1.0 Ur Leukocyte Esterase Mod Urine RBC (Auto) 7 H Urine Microscopic WBC 21 H Ur Squamous Epith Cells 1 Hyaline Casts 0-2 03/12/18 03/13/18 03/13/18 21:06 06:45 06:45 WBC 7.6 D RBC 4.20 Hgb 12.1 Hct 36.3 MCV 86.4 MCH 28.8 MCHC 33.4 RDW 13.5 Plt Count 207 MPV 10.1 Neut % (Auto) 62.6 Lymph % (Auto) 21.0 [place] % (Auto) 7.0 Eos % (Auto) 9.1 H Baso % (Auto) 0.3 Neut # (Auto) 4.7 Lymph # (Auto) 1.6 [place] # (Auto) 0.5 Eos # (Auto) 0.7 Baso # (Auto) 0.0 Neutrophils % (Manual) Lymphocytes % (Manual) Monocytes % (Manual) Eosinophils % (Manual) Platelet Estimate RBC Morphology pO2 24 L VBG pH 7.36 VBG pCO2 48 VBG HCO3 24.1 VBG Total CO2 28.6 H VBG O2 Sat (Calc) 48.5 VBG Base Excess 1.0 VBG Potassium 3.7 Glucose 117 H Lactate 0.8 FiO2 21.0 Sodium 140.0 142 Potassium 3.8 Chloride 108.0 H 109 H Carbon Dioxide 24 Anion Gap 13 BUN 16 Creatinine 0.6 L Est GFR ( Amer) > 60 Est GFR (Non-Af Amer) > 60 Random Glucose 93 Calcium 8.2 L Phosphorus 4.1 Magnesium 2.2 Total Bilirubin AST ALT Alkaline Phosphatase Total Protein Albumin Globulin Albumin/Globulin Ratio Venous Blood Potassium 3.7 Urine Color Urine Clarity Urine pH Ur Specific [place] Urine Protein Urine Glucose (UA) Urine Ketones Urine Blood Urine Nitrate Urine Bilirubin Urine Urobilinogen Ur Leukocyte Esterase Urine RBC (Auto) Urine Microscopic WBC Ur Squamous Epith Cells Hyaline Casts Attending/Attestation - Attestation I have personally seen and examined this patient.: Yes I have fully participated in the care of the patient.: Yes I have reviewed all pertinent clinical information: Yes Notes (Text): 03/13/18 10:06 I have seen and examined patient with GI fellow. Agree with above documentation with the following additions. In brief, this is a 62 year old female with history of arthritis, nephrolithiasis who presents to hospital with complaint of abdominal pain and progressive diarrhea for the past one week. Prior to this she was in usual state of health. She describes generalized diffuse abdominal pain along with multiple episode of watery, non-bloody diarrhea (up to 3 episodes daily). Symptoms began following consumption of ham and cheese sandwich. She otherwise denies nausea, vomiting, fever/chills, rectal bleeding, sick contacts, recent travel, or antibiotic use. She has had similar hospital evaluation for abdominal pain in the past and was recommended to have outpatient follow up but did not establish care. No prior endoscopic evaluation. Review of vitals from today are normal. Arthritis Abdominal pain, diarrhea CT imaging reviewed by me showing diffuse colonic thickening, most prominent in recto/sigmoid - Clinical scenario suggestive of infectious colitis, though given prior episodes of abdominal pain there is a possibility of underlying inflammatory disorder - Advance diet slowly as tolerated - Continue with antibiotic therapy to complete 7 day course - Obtain stool studies - NSAID avoidance - From GI standpoint if patient tolerating PO diet can likely be discharged home with subsequent outpatient follow up. Patient should have outpatient colonoscopy 6-8 weeks following resolution of acute symptoms.
--- NOTE | 2018-03-13 10:56 | CP.PCM.DIS ---
Provider - Provider Date of Admission: 03/12/18 22:24 Attending physician: Amaury Richards Time Spent in preparation of Discharge (in minutes): 45 Diagnosis - Discharge Diagnosis (1) IBD (inflammatory bowel disease) Status: Acute Hospital Course - Lab Results Lab Results: Most Recent Lab Values WBC 7.6 K/uL (4.8-10.8) D 03/13/18 06:45 RBC 4.20 Mil/uL (3.80-5.20) 03/13/18 06:45 Hgb 12.1 g/dL (12.0-16.0) 03/13/18 06:45 Hct 36.3 % (34.0-47.0) 03/13/18 06:45 MCV 86.4 fl (81.0-99.0) 03/13/18 06:45 MCH 28.8 pg (27.0-31.0) 03/13/18 06:45 MCHC 33.4 g/dL (33.0-37.0) 03/13/18 06:45 RDW 13.5 % (11.5-14.5) 03/13/18 06:45 Plt Count 207 K/uL (130-400) 03/13/18 06:45 MPV 10.1 fl (7.2-11.7) 03/13/18 06:45 Neut % (Auto) 62.6 % (50.0-75.0) 03/13/18 06:45 Lymph % (Auto) 21.0 % (20.0-40.0) 03/13/18 06:45 [place] % (Auto) 7.0 % (0.0-10.0) 03/13/18 06:45 Eos % (Auto) 9.1 % (0.0-4.0) H 03/13/18 06:45 Baso % (Auto) 0.3 % (0.0-2.0) 03/13/18 06:45 Neut # (Auto) 4.7 K/uL (1.8-7.0) 03/13/18 06:45 Lymph # (Auto) 1.6 K/uL (1.0-4.3) 03/13/18 06:45 [place] # (Auto) 0.5 K/uL (0.0-0.8) 03/13/18 06:45 Eos # (Auto) 0.7 K/uL (0.0-0.7) 03/13/18 06:45 Baso # (Auto) 0.0 K/uL (0.0-0.2) 03/13/18 06:45 Neutrophils % (Manual) 96 % (42-75) H 03/12/18 19:30 Lymphocytes % (Manual) TEST NOT PERFORMED 03/12/18 19:30 Monocytes % (Manual) 3 % (0-10) 03/12/18 19:30 Eosinophils % (Manual) 1 % (0-7) 03/12/18 19:30 Platelet Estimate Normal (NORMAL) 03/12/18 19:30 RBC Morphology Normal (NORMAL) 03/12/18 19:30 pO2 24 mm/Hg (30-55) L 03/12/18 21:06 VBG pH 7.36 (7.32-7.43) 03/12/18 21:06 VBG pCO2 48 mmHg (40-60) 03/12/18 21:06 VBG HCO3 24.1 mmol/L 03/12/18 21:06 VBG Total CO2 28.6 mmol/L (22-28) H 03/12/18 21:06 VBG O2 Sat (Calc) 48.5 % (40-65) 03/12/18 21:06 VBG Base Excess 1.0 mmol/L (0.0-2.0) 03/12/18 21:06 VBG Potassium 3.7 mmol/L (3.6-5.2) 03/12/18 21:06 Sodium 140.0 mmol/L (132-148) 03/12/18 21:06 Chloride 108.0 mmol/L (98-107) H 03/12/18 21:06 Glucose 117 mg/dL (65-105) H 03/12/18 21:06 Lactate 0.8 mmol/L (0.7-2.1) 03/12/18 21:06 FiO2 21.0 % 03/12/18 21:06 Sodium 142 mmol/l (132-148) 03/13/18 06:45 Potassium 3.8 MMOL/L (3.6-5.0) 03/13/18 06:45 Chloride 109 mmol/L (98-107) H 03/13/18 06:45 Carbon Dioxide 24 mmol/L (22-30) 03/13/18 06:45 Anion Gap 13 (10-20) 03/13/18 06:45 BUN 16 mg/dl (7-17) 03/13/18 06:45 Creatinine 0.6 mg/dl (0.7-1.2) L 03/13/18 06:45 Est GFR ( Amer) > 60 03/13/18 06:45 Est GFR (Non-Af Amer) > 60 03/13/18 06:45 Random Glucose 93 mg/dL (65-105) 03/13/18 06:45 Calcium 8.2 mg/dL (8.4-10.2) L 03/13/18 06:45 Phosphorus 4.1 mg/dl (2.5-4.5) 03/13/18 06:45 Magnesium 2.2 MG/DL (1.6-2.3) 03/13/18 06:45 Total Bilirubin 1.9 mg/dl (0.2-1.3) H 03/12/18 19:30 Direct Bilirubin 0.3 mg/ml (0.0-0.4) 03/13/18 10:30 AST 28 U/L (14-36) 03/12/18 19:30 ALT 21 U/L (9-52) 03/12/18 19:30 Alkaline Phosphatase 128 U/L (38-126) H D 03/12/18 19:30 Total Protein 7.9 G/DL (6.3-8.2) 03/12/18 19:30 Albumin 4.1 g/dL (3.5-5.0) 03/12/18 19:30 Globulin 3.8 gm/dL (2.2-3.9) 03/12/18 19:30 Albumin/Globulin Ratio 1.1 (1.0-2.1) 03/12/18 19:30 Venous Blood Potassium 3.7 mmol/L (3.6-5.2) 03/12/18 21:06 Urine Color Yellow (YELLOW) 03/12/18 20:25 Urine Clarity Slighty-cloudy (Clear) 03/12/18 20:25 Urine pH 6.0 (5.0-8.0) 03/12/18 20:25 Ur Specific [place] 1.018 (1.003-1.030) 03/12/18 20:25 Urine Protein Negative mg/dL (NEGATIVE) 03/12/18 20:25 Urine Glucose (UA) Neg mg/dL (Normal) 03/12/18 20:25 Urine Ketones Negative mg/dL (NEGATIVE) 03/12/18 20:25 Urine Blood Small (NEGATIVE) 03/12/18 20:25 Urine Nitrate Negative (NEGATIVE) 03/12/18 20:25 Urine Bilirubin Negative (NEGATIVE) 03/12/18 20:25 Urine Urobilinogen 0.2-1.0 mg/dL (0.2-1.0) 03/12/18 20:25 Ur Leukocyte Esterase Mod [place]/uL (Negative) 03/12/18 20:25 Urine RBC (Auto) 7 /hpf (0-3) H 03/12/18 20:25 Urine Microscopic WBC 21 /hpf (0-5) H 03/12/18 20:25 Ur Squamous Epith Cells 1 /hpf (0-5) 03/12/18 20:25 Hyaline Casts 0-2 /hpf (0-2) 03/12/18 20:25 - Hospital Course Hospital Course: 62 years old Female with no significant past medical hx, comes with 8 days of worsening Pain to the right lower quadrant , radiating to the RUQ, Epigastrium and to the Right back. It is associated with non bloody diarrhea, nausea and vomiting. No fever nor chills. On admission, patient was mildy hypotensive with severe pain. She was admitted to [facility] with fluids and IV antibiotics. This morning on evaluation patient's symptoms unexpectedly resolved quickly, and she no longer has pain, and is able to tolerate PO diet. Her WBC count also resolved more quickly than expected. BP stable, no acute distress. Patient was evaluated by GI who also feels patient may be discharged home in stable condition with follow up PCP and Gastroenterology at the [facility]. HD stable, no acute distress. Discharge Exam - Head Exam Head Exam: ATRAUMATIC, NORMOCEPHALIC - Eye Exam Eye Exam: EOMI, Normal appearance, PERRL Pupil Exam: NORMAL ACCOMODATION - ENT Exam ENT Exam: Mucous Membranes Moist, Normal Oropharynx - Neck Exam Neck exam: Full Rom, Normal Inspection - Respiratory Exam Respiratory Exam: Clear to PA & Lateral, NORMAL BREATHING PATTERN - Cardiovascular Exam Cardiovascular Exam: RRR, +S1, +S2 - GI/Abdominal Exam GI & Abdominal Exam: Normal Bowel Sounds, Soft. absent: Mass, Organomegaly, Tenderness - Extremities Exam Extremities exam: normal capillary refill, pedal pulses present - Back Exam Back exam: absent: CVA tenderness (L), CVA tenderness (R) - Neurological Exam Neurological exam: Alert, Oriented x3 - Psychiatric Exam Psychiatric exam: Normal Affect, Normal Mood - Skin Skin Exam: Dry, Warm Discharge Plan - Discharge Medications Prescriptions: Ciprofloxacin [Cipro] 500 mg PO Q12H #18 tab metroNIDAZOLE [Flagyl] 500 mg PO Q8H #27 tab - Follow Up Plan Condition: STABLE Disposition: HOME/ ROUTINE Additional Instructions: MAKE APPOINTMENT WITH [facility] ONE WEEK AND GASTROENTEROLOGY CLINIC THERE. Por favor, kranthi un seguimiento en la clnica de liad familiar para Gastroenterologa, para programar tambin kody futura endoscopia superior y colonoscopia en kody semana. Referrals: [facility] [Provider Group]
--- NOTE | 2018-03-13 13:47 | CT ---
Date of service: 03/12/2018 PROCEDURE: CT scan abdomen pelvis HISTORY: Right lower quadrant pain, diarrhea COMPARISON: Comparison made with prior CT scan abdomen pelvis 08/19/2017 TECHNIQUE: Contiguous axial images of the abdomen and pelvis performed following oral oral and intravenous injection contrast material. Additional 2D sagittal and coronal reformats provided reformats generated. This CT exam was performed using one or more of the following dose reduction techniques: Automated exposure control, adjustment of the mA and/or kV according to patient size, and/or use of iterative reconstruction technique. Radiation dose: Total exam DLP = 516.92 mGy-cm. Contrast dose: 95 cc Visipaque 320 contrast material. FINDINGS: LOWER THORAX: Heart is enlarged. No significant pericardial effusion. The mild passive/ dependent type atelectasis both lung bases. There also appears to be some minimal scarring in the left lingular region. No evidence of effusion or basilar pneumothorax. LIVER: Liver is enlarged measuring nearly 20 cm in CC dimension. Tiny sub cm hypodense focus dome of the liver likely representing a tiny cyst with Hounsfield units in the upper single digits. Mild fatty hepatic infiltration. Portal and splenic veins are opacified. GALLBLADDER AND BILE DUCTS: Unremarkable. PANCREAS: Unremarkable. No mass. No ductal dilatation. SPLEEN: Unremarkable. No splenomegaly. ADRENALS: Unremarkable. KIDNEYS AND URETERS: Unremarkable. No stone or hydronephrosis. BLADDER: Grossly unremarkable. REPRODUCTIVE: Unremarkable. APPENDIX: Unremarkable. BOWEL: Stomach is distended with food debris liquid contrast and air. No evidence of acute mechanical small bowel obstruction. Small bowel loops exhibit normal contour and caliber. No evidence of acute mechanical small bowel obstruction with oral contrast material seen extending into the cecum. The There appears to be mild wall thickening -wall edema findings may represent on the colitis nonspecific. Clinical correlation recommended. PERITONEUM: Unremarkable. No fluid collection. No free air. The small fat containing umbilical hernia. LYMPH NODES: Unremarkable. No enlarged lymph nodes. VASCULATURE: Unremarkable. No aortic aneurysm. BONES: Minor multilevel degenerative spondylosis of the lower thoracic and lumbar spine. OTHER FINDINGS: None. IMPRESSION: Diffuse colonic wall thickening likely representing a nonspecific colitis; rule out infectious versus inflammatory etiologies. Mild hepatomegaly. Six Probable small cyst dome of the liver. Mild fatty hepatic infiltration. Normal appendix
[2018-03-14 08:13] LABS: HEPATITIS B SURFACE AG Negative (NEGATIVE)
[2018-03-14 08:18] LABS: HEPATITIS A IGM NEGATIVE (NEGATIVE)
[2018-03-14 08:20] LABS: HEPATITIS B CORE AB NEGATIVE (NEGATIVE)
[2018-03-14 08:30] LABS: HEPATITIS C ANTIBODY NEGATIVE (NEGATIVE)
== END 2018-03-13 12:15 | disposition home or self-care (01) | DRG 814 ==
LOC: H.ER 17:49 → H.ERHOLD 22:24 → H.MEDSURG1 23:50
PROVIDERS: ADMIT Internal Medicine; ATTEND Internal Medicine
DX: K52.3 Indeterminate colitis (principal); I95.9 Hypotension, unspecified; M17.12 Unilateral primary osteoarthritis, left knee; Z91.19 Patient's noncompliance with other medical treatment and regimen; D72.829 Elevated white blood cell count, unspecified

== ENCOUNTER 2018-10-31 10:36 | Emergency (ER) | payer OTHER ==
[2018-10-31 10:38] VITALS: BMI 27.7
--- NOTE | 2018-10-31 11:02 | ED PDOC ---
HPI: Influenza Time Seen by Provider: 10/31/18 10:54 Chief Complaint: Flu-like Symptoms History Per: Patient Onset/Duration Of Symptoms: Days (3) Symptoms include: fever, headache, bodyaches, sore throat, cough, nasal congestion. denies: difficulty breathing Additional complaint(s):: Fever, body aches, sore throat, cough x 3 days. Cough is nonproductive. Also c/o nasal congestion. Denies vomiting or diarrhea. Past Medical History Vital Signs: Last Vital Signs Temp 98.3 F 10/31/18 10:50 Pulse 62 10/31/18 10:50 Resp 18 10/31/18 10:50 BP 130/70 10/31/18 10:50 Pulse Ox 98 10/31/18 10:50 - Medical History PMH: Arthritis Denies: Chronic Kidney Disease - Family History Family History: States: Unknown Family Hx - Immunization History Hx Tetanus Toxoid Vaccination: No Hx Influenza Vaccination: No Hx Pneumococcal Vaccination: No - Home Medications Home Medications: Ambulatory Orders Medication Instructions Recorded Naproxen [Naprosyn] 500 mg PO Q12H #20 tab 10/31/18 Oseltamivir Cap [Tamiflu] 75 mg PO BID #10 cap 10/31/18 - Allergies Allergies/Adverse Reactions: Allergies Allergy/AdvReac Type Severity Reaction Status Date / Time No Known Allergies Allergy Unverified 03/17/13 12:06 Review of Systems Constitutional: Positive for: Fever, Malaise ENT: Positive for: Throat Pain Respiratory: Positive for: Cough. Negative for: Shortness of Breath Physical Exam - Reviewed Nursing Documentation Reviewed: Yes Vital Signs Reviewed: Yes - Physical Exam Appears: Positive for: Non-toxic, No Acute Distress Head Exam: Positive for: ATRAUMATIC, NORMAL INSPECTION, NORMOCEPHALIC Skin: Positive for: Normal Color, Warm, DRY Eye Exam: Positive for: EOMI, Normal appearance, PERRL ENT: Positive for: Normal ENT Inspection Neck: Positive for: Normal, Painless ROM, Supple Cardiovascular/Chest: Positive for: Regular Rate, Rhythm Respiratory: Positive for: CNT, Normal Breath Sounds Gastrointestinal/Abdominal: Positive for: Normal Exam, Soft Back: Positive for: Normal Inspection Extremity: Positive for: Normal ROM Neurologic/Psych: Positive for: Alert, Oriented - ECG O2 Sat by Pulse Oximetry: 98 Disposition - Clinical Impression Clinical Impression: Influenza-like symptoms - Patient ED Disposition Is Patient to be Admitted: No Counseled Patient/Family Regarding: Studies Performed, Diagnosis, Need For Followup, Rx Given - Disposition Referrals: Michele Mtz MD [Staff Provider] - Disposition: Routine/Home Disposition Time: 11:03 Condition: FAIR Prescriptions: Naproxen [Naprosyn] 500 mg PO Q12H #20 tab Oseltamivir Cap [Tamiflu] 75 mg PO BID #10 cap Instructions: Flu Print Language: MALAY
[2018-10-31 12:08] VITALS: BP 128/72; PULSE 65; RESP 16; TEMP 98; O2SAT 100
--- NOTE | 2018-11-03 06:15 | CARD ---
APPROVED REPORT Date of service: 10/31/2018 EKG Measurement Heart [id number] NM 150P3 [id number] <Conclusion> Normal sinus rhythm Normal ECG
== END 2018-10-31 12:08 | disposition home or self-care (01) ==
LOC: H.ER 10:36
DX: J11.1 Influenza due to unidentified influenza virus with other respiratory manifestations (principal)

== ENCOUNTER 2018-12-30 21:09 | Emergency (ER) | payer OTHER ==
[2018-12-30 21:10] VITALS: BMI 27.7
[2018-12-30] MEDS ORDERED: Sodium Chloride 0.9% 1,000 ML IV STA (21:35)
--- NOTE | 2018-12-30 22:01 | ED PDOC ---
HPI: Abdomen Time Seen by Provider: 12/30/18 21:25 Chief Complaint (Nursing): Abdominal Pain Chief Complaint (Provider): Vomiting, diarrhea, abdominal pain History Per: Patient History/Exam Limitations: no limitations Onset/Duration Of Symptoms: Hrs Context: Food (shrimp soup) Location Of Pain/Discomfort: Diffuse Associated Symptoms: Vomiting (non bilious, non bloody), Diarrhea (non bloody), Other (abdominal pain) Additional Complaint(s): 63 year old female with no significant medical history presents to ED with vomiting, diarrhea, abdominal pain x4 hours. She had just eaten shrimp soup when she developed acute, moderate to severe, diffuse abdominal pain and reports 6 episodes of non-bloody, non-bilious vomiting and 6 episodes of non-bloody diarrhea. PMD: Michele Mtz Past Medical History Reviewed: Historical Data, Nursing Documentation, Vital Signs Vital Signs: Last Vital Signs Temp 98.3 F 12/30/18 21:12 Pulse 96 H 12/30/18 21:12 Resp 22 12/30/18 21:12 BP 168/86 H 12/30/18 21:12 Pulse Ox 98 12/30/18 21:12 Primary Care Provider: Michele Mtz - Medical History PMH: Arthritis Denies: Chronic Kidney Disease - Surgical History Surgical History: No Surg Hx - Family History Family History: States: No Known Family Hx - Social History Current smoker - smoking cessation education provided: No Alcohol: None Drugs: Denies - Immunization History Hx Tetanus Toxoid Vaccination: No Hx Influenza Vaccination: No Hx Pneumococcal Vaccination: No - Home Medications Home Medications: Ambulatory Orders Medication Instructions Recorded Naproxen [Naprosyn] 500 mg PO Q12H #20 tab 10/31/18 Oseltamivir Cap [Tamiflu] 75 mg PO BID #10 cap 10/31/18 - Allergies Allergies/Adverse Reactions: Allergies Allergy/AdvReac Type Severity Reaction Status Date / Time No Known Allergies Allergy Unverified 12/30/18 21:18 Review of Systems ROS Statement: Except As Marked, All Systems Reviewed And Found Negative Gastrointestinal: Positive for: Vomiting (non-bloody, non-bilious), Abdominal Pain (acute, diffuse), Diarrhea (non-bloody) Physical Exam - Reviewed Nursing Documentation Reviewed: Yes Vital Signs Reviewed: Yes - Physical Exam Appears: Positive for: Uncomfortable Head Exam: Positive for: ATRAUMATIC, NORMOCEPHALIC Skin: Positive for: Normal Color, Warm, Dry Eye Exam: Positive for: EOMI, Normal appearance, PERRL ENT: Positive for: Other (dry mucous membrane) Neck: Positive for: Normal, Painless ROM, Supple Cardiovascular/Chest: Positive for: Regular Rate, Rhythm. Negative for: Murmur Respiratory: Positive for: Normal Breath Sounds. Negative for: Respiratory Distress Gastrointestinal/Abdominal: Positive for: Tenderness (diffuse) Back: Positive for: Normal Inspection. Negative for: L CVA Tenderness, R CVA Tenderness, Vertebral Tenderness Extremity: Positive for: Normal ROM (upper and lower). Negative for: Pedal Edema, Deformity Neurological/Psych: Positive for: Alert, Oriented (x3). Negative for: Motor/Sensory Deficits - Laboratory Results Result Diagrams: 12/30/18 22:00 12/30/18 22:00 - ECG O2 Sat by Pulse Oximetry: 98 (RA) Pulse Ox Interpretation: Normal Medical Decision Making Medical Decision Making: Time: 2156 Initial Impression: 63 y/o female with abdominal pain, vomiting, diarrhea Initial Plan: --Labs (CBC, CMP, U-Dip, Lipase) --EKG --CT (Abd & Pelvis IV Contrast) --IV Fluid 1000 mls/hr --Zofran 4 mg IV --Morphine 2 mg --Pepcid 0013 CT Abdomen/Pelvis FINDINGS: LUNG BASES: The lung bases appear clear. No pleural effusions are seen. A 5.8 mm pleural- based calcification is noted in the postero-lateral left lung base. LIVER: A tiny 5.4 mm hypodense zone is seen in the posterior dome of the right hepatic lobe. This is thought likely compatible with a tiny cyst. Otherwise, unremarkable. GALLBLADDER AND BILE DUCTS: The gallbladder appears within normal limits. No radioopaque gallstones are seen. No biliary ductal dilatation is evident. PANCREAS: Unremarkable. SPLEEN: Unremarkable. ADRENAL GLANDS: Unremarkable. KIDNEYS, URETERS, AND BLADDER: The kidneys appear within normal limits. There is no hydronephrosis or hydroureter. A punctate non-obstructing calculus is seen in the lower right renal pole. A 2.0 mm non-obstructing calculus is seen in the anterior lower left renal pole. The urinary bladder appeared normal in size and configuration. STOMACH AND BOWEL: Unremarkable appearance of the stomach. No evidence of bowel obstruction. There is mucosal wall thickening noted throughout the small and large intestinal tract with fluid in the lumen compatible with diffuse enterocolitis. Infectious or inflammatory etiologies are thought most likely. APPENDIX: No evidence of acute appendicitis on CT examination. PERITONEUM: No free fluid. No free air. A small umbilical hernia is noted which contains fat. LYMPH NODES: No lymphadenopathy is evident. REPRODUCTIVE: Unremarkable as visualized. VASCULATURE: No evidence of abdominal aortic aneurysm. BONES: No aggressive appearing osseous lesion. No acute osseous pathology evident. There is disc space narrowing and vacuum disc phenomenon noted at L5-S1 compatible with degenerative disc disease. IMPRESSION: 1. Evidence of diffuse enterocolitis. 2. Bilateral lower pole non-obstructing punctate renal calculi. 3. A small umbilical hernia is present which contains fat. 0033 Gallbladder US Findings: Liver measures 16.8 cm. Normal gallbladder. Nondilated common bile duct measuring 4 mm. Normal pancreas and visualized aorta. Normal right kidney. Impression: Unremarkable exam. 0135 Patient reports marked improvement in symptoms, stable for discharge. Diagnosis: colitis Scribe Attestation: Documented by Breezy Milton training under Ely Guido, acting as a scribe for Freeman Christina MD. Provider Scribe Attestation: All medical record entries made by the Scribe were at my direction and personally dictated by me. I have reviewed the chart and agree that the record accurately reflects my personal performance of the history, physical exam, medical decision making, and the department course for this patient. I have also personally directed, reviewed, and agree with the discharge instructions and disposition. Disposition - Clinical Impression Clinical Impression: Colitis - Patient ED Disposition Is Patient to be Admitted: No - Disposition Disposition: Routine/Home Disposition Time: 01:35 Condition: STABLE Forms: [employer] ([place])
[2018-12-30 22:35] LABS: BASO % 0.2 % (0.0-2.0); EOS # 0.4 K/uL (0.0-0.7); EOS % 2.5 % (0.0-4.0); HEMOGLOBIN 13.5 g/dL (12.0-16.0); LYMPH # 0.3 K/uL (1.0-4.3); LYMPH % 1.8 % (20.0-40.0); MEAN CORPUSCULAR HEMOGLOBIN 28.5 pg (27.0-31.0); MEAN CORPUSCULAR HGB CONC 33.1 g/dL (33.0-37.0); MEAN PLATELET VOLUME 9.4 fl (7.2-11.7); MONO # 1.1 K/uL (0.0-0.8); MONO % 6.8 % (0.0-10.0); NEUT # 13.7 K/uL (1.8-7.0); NEUT % 88.7 % (50.0-75.0); NRBC % 0.7 % (0.0-0.0); PLATELET COUNT 276 K/uL (130-400); RBC 4.74 Mil/uL (3.80-5.20); RED CELL DISTRIBUTION WIDTH 13.3 % (11.5-14.5); WHITE BLOOD COUNT 15.4 K/uL (4.8-10.8)
[2018-12-30 22:45] LABS: ALB/GLOB RATIO 1.2 (1.0-2.1); ALBUMIN 4.2 g/dL (3.5-5.0); ALT/SGPT 31 U/L (9-52); AST/SGOT 38 U/L (14-36); BLOOD UREA NITROGEN 17 mg/dl (7-17); CALCIUM 8.8 mg/dL (8.4-10.2); GFR NON-AFRICAN AMERICAN > 60; LIPASE 83 U/L (23-300)
[2018-12-30 23:04] LABS: BANDS 2 % (0-2); EOSINOPHIL 1 % (0-7); LYMPHOCYTE 3 % (20-50); MONOCYTE 5 % (0-10); NEUTROPHIL 89 % (42-75); PLATELET ESTIMATE NORMAL (NORMAL); TOTAL CELLS COUNTED 100
[2018-12-30] MEDS ORDERED: Sodium Chloride 0.9% 50 ML IV ONE (23:25)
[2018-12-30] MEDS ORDERED: Iohexol 300 100 ML IJ ONE (23:25)
[2018-12-31 01:58] VITALS: BP 136/87; PULSE 73; RESP 16; TEMP 97.9; O2SAT 99
--- NOTE | 2018-12-31 11:47 | CARD ---
APPROVED REPORT Date of service: 12/30/2018 EKG Measurement Heart [id number] VA 160P25 [id number] <Conclusion> Normal sinus rhythm Left axis deviation Abnormal ECG
--- NOTE | 2018-12-31 14:44 | CT ---
Date of service: 12/30/2018 PROCEDURE: CT abdomen and pelvis HISTORY: Abdominal pain with vomiting and diarrhea. COMPARISON: Comparison made with prior CT scan of the abdomen and pelvis dated 03/12/2018. TECHNIQUE: Contiguous axial images of the abdomen and pelvis performed following intravenous injection of approximately 95 cc Omnipaque 300 contrast material. Additional 2D sagittal and coronal reformats generated. Radiation dose: Total exam DLP = 452.55 mGy-cm. This CT exam was performed using one or more of the following dose reduction techniques: Automated exposure control, adjustment of the mA and/or kV according to patient size, and/or use of iterative reconstruction technique. FINDINGS: LOWER THORAX: Heart is enlarged. No significant pericardial effusion. Mild passive/dependent type atelectasis both posterior lower lung downing right greater than left. There also appears to be some minor scarring in the left lingular region. No effusion or basilar pneumothorax. LIVER: Liver is enlarged measuring over 20 cm in CC dimension. Mild fatty hepatic infiltration. Redemonstrated is a small subcentimeter low-attenuation lesion posterior superior aspect right lobe liver near the dome unchanged from prior exam there is GALLBLADDER AND BILE DUCTS: Gallbladder physiologically distended. No evidence of intraluminal gallbladder calculi PANCREAS: Unremarkable. No mass. No ductal dilatation. Pancreas exhibits normal appearance without masses collections or calcifications. SPLEEN: Unremarkable. No splenomegaly. ADRENALS: There appears to be mild adrenal hyperplasia left greater than right. KIDNEYS AND URETERS: Kidneys demonstrate symmetric nephrograms. No evidence of nephrolithiasis or hydronephrosis. BLADDER: Urinary bladder physiologically distended. No evidence of intraluminal urinary bladder calculi. REPRODUCTIVE: Uterus unremarkable.. APPENDIX: Unremarkable. BOWEL: Evaluation of the bowel slightly limited due to the lack of oral contrast material. The stomach is distended with food debris liquid and air. Visualized loops of small bowel exhibit mild dilatation and diffuse wall thickening consistent with an antral enteritis... There is moderate amount of fluid seen within distended cecum with relative collapse of the remaining large bowel. Findings may represent concomitant medial ileus -colitis PERITONEUM: Unremarkable. No fluid collection. No free air. Small fat containing umbilical hernia LYMPH NODES: Unremarkable. No enlarged lymph nodes. VASCULATURE: Unremarkable. No aortic aneurysm. No aortic atherosclerotic calcification or mural plaque present. BONES: Mild multilevel degenerative spondylosis of the lower thoracic and lumbar spine. OTHER FINDINGS: None. IMPRESSION: Visualized loops of small bowel exhibit mild dilatation and diffuse wall thickening consistent with an antral enteritis... There is moderate amount of fluid seen within distended cecum with relative collapse of the remaining large bowel. Findings may represent concomitant medial ileus -colitis Hepatomegaly with fatty infiltration. Small fo subcentimeter low attenuation focus superior aspect right lobe liver near the dome of the liver too small to characterize however unchanged from prior study
--- NOTE | 2018-12-31 15:29 | US ---
Date of service: 12/31/2018 HISTORY: abd pain COMPARISON: None. TECHNIQUE: Sonographic evaluation of the right upper quadrant of the abdomen. FINDINGS: LIVER: Measures 16.8 cm in length. Normal echogenicity of the liver parenchyma. No mass. No intrahepatic bile duct dilatation. Poor vein exhibits hepatopetal flow GALLBLADDER: Unremarkable. No gallstones. No sonographic Diaz sign COMMON BILE DUCT: Measures 4.0 mm. No stones. No dilatation. PANCREAS: Visualized portions of the pancreas unremarkable. Note that the pancreatic tail is poorly delineated due to body habitus and bowel gas. No obvious pancreatic mass or collection. No shadowing calculi are identified. No significant ductal dilatation RIGHT KIDNEY: Measures 10.6 x 3.7 x 4.0 cm in length. Normal echogenicity. No calculus, mass, or hydronephrosis. AORTA: No aneurysmal dilatation. IVC: Unremarkable. OTHER FINDINGS: None . IMPRESSION: No evidence of cholelithiasis.
== END 2018-12-31 01:58 | disposition home or self-care (01) ==
LOC: H.ER 21:09
DX: K52.9 Noninfective gastroenteritis and colitis, unspecified (principal); J98.4 Other disorders of lung
CPT/HCPCS: 74177; 76705; 80053; 82948; 83690; 85025; 93005; 96374; 99284; J2270; J2405; J7030; Q9967